=== PATIENT | female | born 1970 | race Caucasian/White ===

== ENCOUNTER 2021-01-21 11:40 | Emergency (ER) | payer BC ==
[2021-01-21] MEDS ORDERED: Sodium Chloride 0.9% 2.5 ML Syringe FLUSH PRN (12:07)
[2021-01-21] MEDS ORDERED: Sodium Chloride 0.9% 1,000 ML IV ONE (12:07)
[2021-01-21] MEDS ORDERED: Sodium Chloride 0.9% 10 ML Syringe FLUSH PRN (12:07)
[2021-01-21] MEDS: Morphine 4 MG/ML Syringe IVPUSH ONE ×2 (12:16→13:38)
[2021-01-21] MEDS: Ondansetron 4 MG/2 ML SDV IVPUSH ONE ×2 (12:16→13:38)
[2021-01-21 12:45] LABS: BLOOD UREA NITROGEN,BUN 9 mg/dL (7.0-18.0); CARBON DIOXIDE,CO2 26.5 mmol/L (21.0-32.0); CHLORIDE,CL 106 mmol/L (98-107); GLUCOSE RANDOM 84 mg/dL (74-106); LIPASE 66 U/L (73-393); POTASSIUM,K 3.8 mmol/L (3.5-5.1); SODIUM,NA 141 mmol/L (136-145)
[2021-01-21] MEDS ORDERED: Clopidogrel 75 MG Tab PO ONE (12:59)
[2021-01-21] MEDS ORDERED: Tenecteplase 50 MG Kit IV ONE (13:01)
[2021-01-21] MEDS ORDERED: Heparin Sodium 5,000 Units/ML Vial IVPUSH ONE (13:01)
[2021-01-21] MEDS ORDERED: Morphine 4 MG/ML Syringe IVPUSH ONE (13:10)
[2021-01-21] MEDS ORDERED: Heparin Sodium/0.45% NaCl 500 ML IV SCH (13:15)
--- NOTE | 2021-01-21 13:41 | PCM.EKG ---
#1 Interpretation EKG Interpretation Comments: EKG: As interpreted by ER physician: Shante: Nonspecific ST-T wave abnormalities Normal axis No evidence of ST elevation [place] Normal sinus rhythm heart rate of 58
--- NOTE | 2021-01-21 14:43 | CT ---
INDICATION: Aortic evaluation. Chest pain radiating to shoulders. COMPARISON: None. TECHNIQUE: CTA of the chest with 100 cc of Isovue 370 IV contrast. Coronal and sagittal reconstructions. 3D post processing was performed. FINDINGS: Chest: Normal heart size. Conventional three vessel aortic arch. The great vessels are widely patent. The thoracic aorta is normal in caliber without evidence of dissection or penetrating atheromatous ulcer. Slight motion artifact through the ascending thoracic aorta. No intramural hematoma identified, however no noncontrast images were provided. No significant atheromatous plaque. Normal caliber central pulmonary arteries. No large central pulmonary embolism. No pericardial effusion. Small calcified left hilar lymph nodes compatible with prior granulomatous disease. No thoracic lymphadenopathy. No focal consolidation, pleural effusion, or pneumothorax. No pulmonary nodules identified. No central endobronchial lesion or bronchial wall thickening. The thyroid gland is normal in appearance. The bones are unremarkable. The abdomen will be discussed in a separate report. IMPRESSION: 1. No evidence of thoracic aortic aneurysm, dissection, or penetrating atheromatous ulcer. 2. No large central pulmonary embolism. 3. No other acute findings in the chest. Please note that all CT scans at this facility use dose modulation, iterative reconstruction, and/or weight-based dosing when appropriate to reduce radiation dose to as low as reasonably achievable. Dictated by Iwona Childers MD @ 01/21/2021 2:41:[address] Iwona Childers @ Jan 21 2021 2:41PM
--- NOTE | 2021-01-21 14:49 | CT ---
INDICATION: Aortic evaluation. Chest pain radiating to shoulders. COMPARISON: None. TECHNIQUE: CTA of the abdomen with 100 cc of Isovue 370 IV contrast. Coronal and sagittal reconstructions. 3D post processing was performed. FINDINGS: The abdominal aorta and bilateral common iliac arteries are normal in caliber without evidence of dissection or penetrating atheromatous ulcer. Motion artifact through the left common iliac artery. The celiac artery, superior mesenteric artery, inferior mesenteric artery, and bilateral renal arteries are patent without significant stenosis. There are two renal arteries bilaterally. No significant atheromatous plaque. Arterial phase of contrast somewhat limits evaluation of the solid organs. The liver, spleen, pancreas, and adrenal glands are negative. Cholecystectomy. No biliary dilation. Symmetric enhancement of the kidneys. No hydronephrosis. No dilation of the visualized ureters. No bowel dilation. Moderate amount of stool throughout the colon. The visualized appendix is negative. No free fluid, free air, or lymphadenopathy in the upper abdomen. The bones are unremarkable. IMPRESSION: 1. Normal caliber abdominal aorta and bilateral common iliac arteries without evidence of dissection or penetrating atheromatous ulcer. 2. No other acute findings in the abdomen. 3. Moderate amount of stool throughout the colon. Please note that all CT scans at this facility use dose modulation, iterative reconstruction, and/or weight-based dosing when appropriate to reduce radiation dose to as low as reasonably achievable. Dictated by Iwona Childers MD @ 01/21/2021 2:49:[address] Iwona Childers @ Jan 21 2021 2:49PM
--- NOTE | 2021-01-21 15:11 | EDM.PDOC ---
ED HPI GENERAL MEDICAL PROBLEM - General Chief Complaint: Chest Pain Stated Complaint: MOUTH Time Seen by Provider: 01/21/21 11:43 - History of Present Illness INITIAL COMMENTS - FREE TEXT/NARRATIVE: HISTORY AND PHYSICAL: History of present illness: This is a 50-year-old female who has a history significant for hypercholesterolemia who presents ER today complaining of pain to her mid sternal region radiating to her scapula. Patient denies any recent fevers, shakes, chills, nausea, vomiting, diarrhea, dysuria, frequency, urgency. Patient reports no associated shortness of breath or diaphoresis with the pain. Patient reports she did feel slightly nauseous when the pain started however currently she is not having any nausea. Patient reports the pain occurred after going to the dentist today and having approximately 16 of her teeth removed. Patient reports that she has some discomfort in her teeth but that the pain that she was experiencing her chest rating to her back was atypical to her usual dental pain. Patient denies any family history of CAD/CT, denies tobacco, denies drug use, denies history of hypertension or diabetes. Patient denies any prior heart disease. Review of systems: As per history of present illness and below otherwise all systems reviewed and negative. Past medical history: As per history of present illness and as reviewed below otherwise noncontributory. Surgical history: As per history of present illness and as reviewed below otherwise noncontributory. Social history: No reported history of drug abuse. Family history: As per history of present illness and as reviewed below otherwise noncontributory. Physical exam: This patient was seen and evaluated during the 2019 SARS-CoV-2 novel coronavirus pandemic period. Community viral transmission is ongoing at time of this encounter and the emergency department is operating under pandemic response procedures. Constitutional: Patient is oriented to person, place, and time. Appears well- developed and well-nourished. No distress. HEENT: Moist mucous membranes Head: Normocephalic and atraumatic Eyes: Right eye exhibits no discharge. Left eye exhibits no discharge. No scleral icterus Neck: Normal range of motion. No tracheal deviation present. Cardiovascular: Normal rate and regular rhythm. Pulmonary: Effort normal, no respiratory distress. Abdominal: No distention Musculoskeletal: Normal range of motion Neurologic: Alert and oriented to person, place and time. Skin: [place], warm and dry. Psychiatric: Normal mood and affect. Behavior is normal. Judgment and thought content normal. Nursing note and vital signs have been reviewed Patient's ER physical exam is significant for mild tenderness palpation to her midsternal region and palpation to her right scapula. Patient has no tenderness to her right upper quadrant. Patient does not have a Terrazas sign. Diagnostics: CBC, CMP, troponin all within normal limits. CT angiogram scan of the chest and abdomen with IV contrast to evaluate aorta was normal. Patient's EKG was reviewed and did show any evidence of ischemia. Therapeutics: [] Assessment and plan: 50-year-old female who presents here today with chest pain rating to her back that was concerning for possible dissection. Patient CT scan is negative. Patient's presentation does not appear to be highly consistent with coronary artery disease. Patient is low risk and has a heart score of 2. Patient is likely hemodynamically stable. Patient has declined pain medicines here and is pain-free shortly after come to the ED and has been resting comfortably. Patient has taken her own Vicodin secondary to her dental pain. I have discussed with the patient limitations of cardiac work-up here in the ED but she feels comfortable with the plan to be discharged home and will follow up with her doctor for further evaluation. Reassessment at the time of disposition demonstrates that the patient is in no acute distress. The patient has remained stable throughout the entire ED visit and is without objective evidence for acute process requiring urgent intervention or hospitalization. The patient is stable for discharge, counseling is provided as documented above, discussed symptomatic treatment and specific conditions for return. I have spoken with the patient/caregiver and discussed todays findings, in addition to providing specific details for the plan of care. Questions are answered and there is agreement with the plan. Heart Score: History: 0 (2, Highly Suspicious; 1, Moderate Suspicious; 0: Slightly Suspicious) EK (2, Significant ST depression; 1: Non specific repolarization disturbance; 0, Normal) Age: 1 (2, = 65; 1: 45-65; 0, =45) Risk factors: 1 (2, =3 risk factors or history of atherosclerotic disease; 1, 1-2 risk factors; 0, no risk factors) Risk Factors include hypercholesterolemia, HTN, DM, smoking, family history, obesity Troponin: 0 (2, (=3x normal limit; 1, 1-3 x normal limit; 0 = normal limit) Total Heart Score: 2 Management Scores 0-3: 0.9-1.7% risk of adverse cardiac event. In the HEART Score study, these patients were discharged (0.99% in the retrospective study, 1.7% in the prospective study) Scores 4-6: 12-16.6% risk of adverse cardiac event. In the HEART Score study, these patients were admitted to the hospital. (11.6% retrospective, 16.6% prospective) Scores =7: 50-65% risk of adverse cardiac event. In the HEART Score study, these patients were candidates for early invasive measures. (65.2% retrospective, 50.1% prospective) Definitive disposition and diagnosis as appropriate pending reevaluation and review of above. chest Pain Score (Numeric/FACES): 2 - Related Data Allergies Allergy/AdvReac Type Severity Reaction Status Date / Time Penicillins Allergy Other Verified 01/21/21 11:53 Home Meds: Home Meds Acetaminophen/Codeine [Tylenol with Codeine No.3 300MG/30MG] 1 tab PO Q4HR PRN 01/21/21 [History] Ibuprofen [Ibu] 600 mg PO ASDIRECTED PRN 01/21/21 [History] PARoxetine [Paxil CR] 30 mg PO DAILY 01/21/21 [History] Simvastatin 40 mg PO DAILY 01/21/21 [History] Past Medical History HEENT History: Reports: None Cardiovascular History: Reports: High Cholesterol Respiratory History: Reports: None Gastrointestinal History: Reports: None Genitourinary History: Reports: None [employer] History: Reports: None Musculoskeletal History: Reports: None Neurological History: Reports: None Psychiatric History: Reports: Anxiety, Depression Endocrine/Metabolic History: Reports: None Hematologic History: Reports: None Immunologic History: Reports: None Oncologic (Cancer) History: Reports: None Dermatologic History: Reports: None - Infectious Disease History Infectious Disease History: Reports: None - Past Surgical History Head Surgeries/Procedures: Reports: None HEENT Surgical History: Reports: Oral Surgery Cardiovascular Surgical History: Reports: None Respiratory Surgical History: Reports: None GI Surgical History: Reports: Cholecystectomy Female Surgical History: Reports: None Endocrine Surgical History: Reports: None Neurological Surgical History: Reports: None Musculoskeletal Surgical History: Reports: None Oncologic Surgical History: Reports: None Dermatological Surgical History: Reports: None Social & Family History - Family History Family Medical History: No Pertinent Family History - Tobacco Use Tobacco Use Status *Q: Never Tobacco User - Recreational Drug Use Recreational Drug Use: No ED ROS GENERAL - Review of Systems Review Of Systems: See Below ED EXAM, GENERAL - Physical Exam Exam: See Below Course - Vital Signs Last Recorded V/S: Last Vital Signs Temp 97.7 F 01/21/21 11:51 Pulse 58 L 01/21/21 11:51 Resp 17 01/21/21 11:51 BP 152/110 H 01/21/21 11:51 Pulse Ox 99 01/21/21 11:51 - Orders/Labs/Meds Orders: Active Orders 24 hr Category Date Time Status Cardiac Monitoring [RC] . DIRECTED Care 01/21/21 12:07 Active Cardiac Monitoring [RC] STAT Care 01/21/21 13:01 Active EKG Documentation Completion [RC] AM Care 01/21/21 12:07 Active Oxygen Therapy, ED [RC] ASDIRECTED Care 01/21/21 13:01 Active HCG QUALITATIVE,URINE [URCHEM] Stat Lab 01/21/21 12:08 Ordered UA W/LOVELY RFLX IF INDICATED [URIN] Stat Lab 01/21/21 12:07 Ordered Sodium Chloride 0.9% [Saline Flush] Med 01/21/21 12:07 Active 10 ml FLUSH ASDIRECTED PRN Sodium Chloride 0.9% [Saline Flush] Med 01/21/21 12:07 Active 2.5 ml FLUSH ASDIRECTED PRN Saline Lock Insert [OM.PC] Stat Oth 01/21/21 12:07 Ordered Medication Orders Sodium Chloride (Sodium Chloride 0.9% 10 Ml Syringe) 10 ml FLUSH ASDIRECTED PRN PRN Reason: Keep Vein Open Last Admin: 01/21/21 12:17 Dose: 10 ml Documented by: EARLINE Sodium Chloride (Sodium Chloride 0.9% 2.5 Ml Syringe) 2.5 ml FLUSH ASDIRECTED PRN PRN Reason: Keep Vein Open Last Admin: 01/21/21 12:17 Dose: 2.5 ml Documented by: EARLINE Labs: Laboratory Tests 01/21/21 01/21/21 01/21/21 Range/Units 11:49 11:49 12:30 WBC 7.20 (4.0-11.0) K/uL RBC 4.59 (4.30-5.90) M/uL Hgb 13.8 (12.0-16.0) g/dL Hct 41.4 (36.0-46.0) % MCV 90.2 (80.0-98.0) fL MCH 30.1 (27.0-32.0) pg MCHC 33.3 (31.0-37.0) g/dL RDW Std Deviation 44.6 (28.0-62.0) fl RDW Coeff of Jana 14 (11.0-15.0) % Plt Count 342 (150-400) K/uL MPV 10.60 (7.40-12.00) fL Neut % (Auto) 69.0 (48.0-80.0) % Lymph % (Auto) 20.6 (16.0-40.0) % [place] % (Auto) 9.3 (0.0-15.0) % Eos % (Auto) 0.8 (0.0-7.0) % Baso % (Auto) 0.3 (0.0-1.5) % Neut # (Auto) 5.0 (1.4-5.7) K/uL Lymph # (Auto) 1.5 (0.6-2.4) K/uL [place] # (Auto) 0.7 (0.0-0.8) K/uL Eos # (Auto) 0.1 (0.0-0.7) K/uL Baso # (Auto) 0.0 (0.0-0.1) K/uL Nucleated RBC % 0.0 /100WBC Nucleated RBCs # 0 K/uL D-Dimer, Quantitative 0.34 (0.0-0.50) mg/L FEU Sodium 141 (136-145) mmol/L Potassium 3.8 (3.5-5.1) mmol/L Chloride 106 (98-107) mmol/L Carbon Dioxide 26.5 (21.0-32.0) mmol/L BUN 9 (7.0-18.0) mg/dL Creatinine 0.8 (0.6-1.0) mg/dL Est Cr Clr Drug Dosing 89.88 mL/min Estimated GFR (MDRD) > 60.0 ml/min Glucose 84 (74-106) mg/dL Calcium 8.9 (8.5-10.1) mg/dL Total Bilirubin 0.2 (0.2-1.0) mg/dL AST 59 H (15-37) IU/L ALT 47 (14-63) IU/L Alkaline Phosphatase 63 (46-116) U/L Troponin I < 0.050 (0.000-0.056) ng/mL Total Protein 6.8 (6.4-8.2) g/dL Albumin 3.4 (3.4-5.0) g/dL Globulin 3.4 (2.6-4.0) g/dL Albumin/Globulin Ratio 1.0 (0.9-1.6) Lipase 66 L (73-393) U/L Meds: Medications Generic Name Dose Route Start Last Admin Trade Name Freq PRN Reason Stop Dose Admin Sodium Chloride 10 ml 01/21/21 12:07 01/21/21 12:17 Sodium Chloride 0.9% 10 Ml Syringe FLUSH 10 ml ASDIRECTED PRN Administration Keep Vein Open Sodium Chloride 2.5 ml 01/21/21 12:07 01/21/21 12:17 Sodium Chloride 0.9% 2.5 Ml Syringe FLUSH 2.5 ml ASDIRECTED PRN Administration Keep Vein Open Discontinued Medications Generic Name Dose Route Start Last Admin Trade Name Freq PRN Reason Stop Dose Admin Sodium Chloride 1,000 mls @ 999 mls/hr 01/21/21 12:07 01/21/21 12:16 Normal Saline IV 01/21/21 13:07 999 mls/hr .Bolus ONE Administration Morphine Sulfate 4 mg 01/21/21 12:07 01/21/21 13:38 Morphine 4 Mg/Ml Syringe IVPUSH 01/21/21 12:08 Not Given ONETIME ONE Morphine Sulfate 4 mg 01/21/21 13:10 01/21/21 13:38 Morphine 4 Mg/Ml Syringe IVPUSH 01/21/21 13:11 Not Given ONETIME ONE Ondansetron HCl 4 mg 01/21/21 12:07 01/21/21 13:38 Ondansetron 4 Mg/2 Ml Sdv IVPUSH 01/21/21 12:08 Not Given ONETIME ONE Departure - Departure Time of Disposition: 15:10 Disposition: Home, Self-Care 01 Condition: Good Clinical Impression: Nonspecific chest pain - Discharge Information Instructions: Nonspecific Chest Pain, Adult Referrals: PCP,Not In Area [Primary Care Provider] - Additional Instructions: He was seen and evaluated in the ER today for pain that you are experiencing in your chest and your back. The CT angiogram that we obtained of your aorta and your chest and abdomen did not reveal any abnormalities within your chest or abdomen. Your EKG and the remainder of your heart work-up did not reveal any significant concerns. Please make an appointment to follow-up with your doctor for reevaluation. Please return to the ER if your chest pain should return if you develop any new or concerning symptoms. The following information is given to patients seen in the emergency department who are being discharged to home. This information is to outline your options for follow-up care. We provide all patients seen in our emergency department with a follow-up referral. The need for follow-up, as well as the timing and circumstances, are variable depending upon the specifics of your emergency department visit. If you don't have a primary care physician on staff, we will provide you with a referral. We always advise you to contact your personal physician following an emergency department visit to inform them of the circumstance of the visit and for follow-up with them and/or the need for any referrals to a consulting specialist. The emergency department will also refer you to a specialist when appropriate. This referral assures that you have the opportunity for follow-up care with a specialist. All of these measure are taken in an effort to provide you with optimal care, which includes your follow-up. Under all circumstances we always encourage you to contact your private physician who remains a resource for coordinating your care. When calling for follow-up care, please make the office aware that this follow-up is from your recent emergency room visit. If for any reason you are refused follow-up, please contact the [facility] Emergency Department at and asked to speak to the emergency department charge nurse. [facility] - Primary [facility] [address] [place] [id number] [facility] [address] [place] [address] Sepsis Event Note (ED) - Evaluation Sepsis Screening Result: No Definite Risk - Focused Exam Vital Signs: Vital Signs Temp Pulse Resp BP Pulse Ox 01/21/21 11:51 97.7 F 58 L 17 152/110 H 99 - My Orders Last 24 Hours: My Active Orders 01/21/21 12:07 Cardiac Monitoring [RC] . DIRECTED EKG Documentation Completion [RC] AM UA W/LOVELY RFLX IF INDICATED [URIN] Stat Sodium Chloride 0.9% [Saline Flush] 10 ml FLUSH ASDIRECTED PRN Sodium Chloride 0.9% [Saline Flush] 2.5 ml FLUSH ASDIRECTED PRN Saline Lock Insert [OM.PC] Stat 01/21/21 12:08 HCG QUALITATIVE,URINE [URCHEM] Stat 01/21/21 13:01 Cardiac Monitoring [RC] STAT Oxygen Therapy, ED [RC] ASDIRECTED - Assessment/Plan Last 24 Hours: My Active Orders 01/21/21 12:07 Cardiac Monitoring [RC] . DIRECTED EKG Documentation Completion [RC] AM UA W/LOVELY RFLX IF INDICATED [URIN] Stat Sodium Chloride 0.9% [Saline Flush] 10 ml FLUSH ASDIRECTED PRN Sodium Chloride 0.9% [Saline Flush] 2.5 ml FLUSH ASDIRECTED PRN Saline Lock Insert [OM.PC] Stat 01/21/21 12:08 HCG QUALITATIVE,URINE [URCHEM] Stat 01/21/21 13:01 Cardiac Monitoring [RC] STAT Oxygen Therapy, ED [RC] ASDIRECTED
== END 2021-01-21 15:25 | disposition home or self-care (01) ==
LOC: MW.ED 11:40
DX: R07.2 Precordial pain (principal); E78.00 Pure hypercholesterolemia, unspecified; Z88.0 Allergy status to penicillin; Z79.899 Other long term (current) drug therapy
CPT/HCPCS: 36415; 71275; 74175; 80053; 83690; 84484; 85025; 85379; 93005; 99285; J7030; 93010; 99284; J2270; J2405